=== PATIENT | male | born 1990 | race African-American/Black ===

== ENCOUNTER 2016-06-25 02:36 | Inpatient (IN) | payer SELFPAY ==
[2016-06-25] VITALS (13 sets, daily range): BP systolic 110–153; BP diastolic 55–94
[~2016-06-25] VITALS: Ht 185.4 cm; Wt 127.3 kg
[2016-06-25 03:05] LABS: BASO # 0.1 x10^3/uL (0.0-0.2); BASO % 1 % (0-3); EOS % 3 % (0-3); HEMATOCRIT 45.4 % (39.0-53.0); HEMOGLOBIN 15.5 g/dL (13.0-17.5); LYMPH # 2.8 x10^3/uL (1.0-4.8); LYMPH % 26 % (24-48); MEAN CORPUSCULAR HEMOGLOBIN 32 pg (25-35); MEAN CORPUSCULAR HGB CONC 34 g/dL (31-37); MEAN CORPUSCULAR VOLUME 92 fL (79-100); MONO % 8 % (0-9); NEUT % 63 % (31-73); PLATELET COUNT 241 x10^3/uL (140-400); RED BLOOD COUNT 4.91 x10^6/uL (4.30-5.70); RED CELL DISTRIBUTION WIDTH 13.5 % (11.5-14.5)
[2016-06-25 03:14] LABS: ANION GAP 10 (6-14); BLOOD UREA NITROGEN 9 mg/dL (8-26); CALCIUM 8.9 mg/dL (8.5-10.1); CARBON DIOXIDE 27 mmol/L (21-32); CHLORIDE 106 mmol/L (98-107); GFR 110.2; GLUCOSE 125 mg/dL (70-99); POTASSIUM 3.8 mmol/L (3.5-5.1); SODIUM 143 mmol/L (136-145)
[2016-06-25 03:20] LABS: ALBUMIN 3.6 g/dL (3.4-5.0); ALK PHOS 101 U/L (46-116); ALT (SGPT) 41 U/L (16-63); AST (SGOT) 29 U/L (15-37); DIRECT BILIRUBIN < 0.1 mg/dL (0.0-0.2); TOTAL BILIRUBIN 0.4 mg/dL (0.2-1.0); TOTAL PROTEIN 7.2 g/dL (6.4-8.2)
[2016-06-25] MEDS ORDERED: LIDO:MAALOX:DONNATAL 1:1:1 15 ML SINGLE DOSE SWSW ONE (04:00)
[2016-06-25] MEDS ORDERED: FAMOTIDINE 20 MG TABLET. PO ONE (04:00)
--- NOTE | 2016-06-25 04:32 | PHYS DOC ---
Past Medical History Past Medical History: No Pertinent History Past Surgical History: No Surgical History Alcohol Use: Occasionally Drug Use: Marijuana Adult General Chief Complaint Chief Complaint: ABDOMINAL PAIN HPI HPI 25-year-old male presenting to the emergency department with epigastric abdominal pain the pain is moderate nonradiating. It is associated with nausea. Denies vomiting but has had nausea. His pain is an 8 out of 10. It is a sharp pain. It is worse with food. Review of systems is negative for chest pain shortness of breath. Positive for nausea. Negative for vomiting. He denies fevers or chills. All other review of systems is negative unless otherwise noted in history of present illness. Review of Systems Review of Systems SEE ABOVE. Current Medications Current Medications Current Medications Medications (Trade) Dose Ordered Sig/Nesha Start Time Stop Time Status Last Admin Dose Admin Famotidine 20 mg 20 mg 1X ONCE 06/25/16 04:00 06/25/16 04:01 DC 06/25/16 04:00 20 MG Morphine Sulfate 2 mg 2 mg PRN Q2HR PRN 06/25/16 04:45 06/26/16 04:44 Multi-Ingredient Mouthwash/Gargle (Gi Cocktail Single Dose) 15 ml 1X ONCE 06/25/16 04:00 06/25/16 04:01 DC 06/25/16 04:00 15 ML Ondansetron HCl (Zofran) 4 mg PRN Q8HRS PRN 06/25/16 04:45 06/26/16 04:44 Piperacillin Sod/ Tazobactam Sod/ Sodium Chloride (Zosyn/Iv Sodium Chloride 0.9% 50ml) 50 ml @ 100 mls/hr 1X ONCE 06/25/16 05:00 06/25/16 05:29 Sodium Chloride (Iv Sodium Chloride 0.9% 1000ml Bag) 1,000 ml @ 125 mls/hr 1X ONCE 06/25/16 05:00 06/25/16 12:59 Allergies Allergies Allergies Coded Allergies Type Severity Reaction Last Updated Verified No Known Drug Allergies 03/21/14 No Physical Exam Physical Exam Constitutional: Well developed, well nourished, no acute distress, non-toxic appearance. HENT: Normocephalic, atraumatic, bilateral external ears normal, oropharynx moist, no oral exudates, nose normal. [] Eyes: PERRLA, EOMI, conjunctiva normal, no discharge. Neck: Normal range of motion, no tenderness, supple, no stridor. [] Cardiovascular:Heart rate regular rhythm, no murmur [] Lungs & Thorax: Bilateral breath sounds clear to auscultation Abdomen: Abdomen is soft and mildly tender in the right upper quadrant. Equivocal Ren[place] sign. Negative McBurney's point. No rebound tenderness. Mild guarding present. Skin: Warm, dry, no erythema, no rash. [] Back: No tenderness, no CVA tenderness. [] Extremities: No tenderness, no cyanosis, no clubbing, ROM intact, no edema. Neurologic: Alert and oriented X 3, normal motor function, normal sensory function, no focal deficits noted. [] Psychologic: Affect normal, judgement normal, mood normal. Current Patient Data Vital Signs Vital Signs Date Time Temp Pulse Resp B/P Pulse Ox O2 Delivery O2 Flow Rate FiO2 06/25/16 02:58 97.5 74 20 140/81 95 Room Air 97.5 Lab Values Laboratory Tests Test 06/25/16 02:52 White Blood Count 11.0x10^3/uL (4.0-11.0) Red Blood Count 4.91x10^6/uL (4.30-5.70) Hemoglobin 15.5g/dL (13.0-17.5) Hematocrit 45.4% (39.0-53.0) Mean Corpuscular Volume 92fL (79-100) Mean Corpuscular Hemoglobin 32pg (25-35) Mean Corpuscular Hemoglobin Concent 34g/dL (31-37) Red Cell Distribution Width 13.5% (11.5-14.5) Platelet Count 241x10^3/uL (140-400) Neutrophils (%) (Auto) 63% (31-73) Lymphocytes (%) (Auto) 26% (24-48) Monocytes (%) (Auto) 8% (0-9) Eosinophils (%) (Auto) 3% (0-3) Basophils (%) (Auto) 1% (0-3) Neutrophils # (Auto) 6.9x10^3uL (1.8-7.7) Lymphocytes # (Auto) 2.8x10^3/uL (1.0-4.8) Monocytes # (Auto) 0.9x10^3/uL (0.0-1.1) Eosinophils # (Auto) 0.3x10^3/uL (0.0-0.7) Basophils # (Auto) 0.1x10^3/uL (0.0-0.2) Sodium Level 143mmol/L (136-145) Potassium Level 3.8mmol/L (3.5-5.1) Chloride Level 106mmol/L (98-107) Carbon Dioxide Level 27mmol/L (21-32) Anion Gap 10 (6-14) Blood Urea Nitrogen 9mg/dL (8-26) Creatinine 1.0mg/dL (0.7-1.3) Estimated GFR (Cockcroft-Gault) 110.2 Glucose Level 125mg/dL (70-99) H Calcium Level 8.9mg/dL (8.5-10.1) Total Bilirubin 0.4mg/dL (0.2-1.0) Direct Bilirubin < 0.1mg/dL (0.0-0.2) Aspartate Amino Transferase (AST) 29U/L (15-37) Alanine Aminotransferase (ALT) 41U/L (16-63) Alkaline Phosphatase 101U/L (46-116) Total Protein 7.2g/dL (6.4-8.2) Albumin 3.6g/dL (3.4-5.0) Lipase 187U/L (73-393) Laboratory Tests 06/25/16 02:52 Laboratory Tests 06/25/16 02:52 EKG EKG [] Radiology/Procedures Radiology/Procedures [] Course & Med Decision Making Course & Med Decision Making Pertinent Labs and Imaging studies reviewed. (See chart for details) [] 25-year-old male presenting to the emergency department with epigastric abdominal pain. Vital signs unremarkable. Physical exam shows a mildly tender right upper quadrant. Ultrasound concerning for possible acute cholecystitis. Blood work obtained which showed normal white blood cell count. Chemistry panel otherwise unremarkable. Patient was given IV fluids along with IV antibiotics and admitted to our hospital for surgical consultation further evaluation workup and care. Dragon Disclaimer Dragon Disclaimer This electronic medical record was generated, in whole or in part, using a voice recognition dictation system. Departure Departure Impression: Primary Impression: Cholelithiases Additional Impressions: Common bile duct dilatation Right upper quadrant abdominal pain Disposition: ADMITTED INPATIENT Admitting Physician: Termulo, Megha Condition: STABLE Referrals: NO PCP (PCP) Problem Qualifiers LUIS FISH MD Jun 25, 2016 04:32
--- NOTE | 2016-06-25 04:32 | RAD ---
PROCEDURE Right upper quadrant ultrasound dated 06/25/2016. HISTORY Right upper quadrant pain. TECHNIQUE Routine sonographic imaging performed. COMPARISON None. FINDINGS Liver is of diffusely increased echogenicity, compatible with fatty infiltration. No focal hepatic mass. Intrahepatic biliary tree is normal in caliber. The common bile duct is mildly dilated measuring 10 millimeters diameter. Echogenic shadowing foci within the gallbladder lumen. There is also small amount of sludge. Gallbladder wall is diffusely thickened measuring up to 4 millimeters. The gallbladder is distended. There is pain elicited with transducer pressure over the level of gallbladder. Right kidney measures 11.1 centimeter in length. No hydronephrosis. Left kidney was not imaged. Pancreas is not well visualized due to overlying bowel gas. Limited visualized portions of aorta and IVC unremarkable. No significant ascites. IMPRESSION - Cholelithiasis and gallbladder sludge with diffuse gallbladder wall thickening. In combination with positive Reno sign, acute cholecystitis cannot be excluded. - Hepatic steatosis. - Dilated distal common bile duct could be reactive. A distal stone or stricture is not excluded. If indicated, MRCP may provide additional information. Electronically signed by: Juan Zhou (Jun 25, 2016 04:30:41)
[2016-06-25] MEDS ORDERED: ONDANSETRON PF 4 MG/2 ML VIAL. IV PRN ×4 (04:45→15:30)
[2016-06-25] MEDS ORDERED: IV NORMAL SALINE 1000ML BAG 1,000 ML IV ONE ×2 (05:00)
[2016-06-25] MEDS ORDERED: PIPERACILLIN/TAZOBACTAM 3.375 GM in IV NORMAL SALINE 50ML 50 ML IV ONE (05:00)
[2016-06-25] MEDS: MORPHINE SULFATE 2 MG/ML DISP.SYRIN. IV PRN ×4 (05:01→18:58)
--- NOTE | 2016-06-25 05:18 | ACF ---
Admission Forms Criteria GALLBLADDER OR BILE DUCT INFLAMMATION OR STONE Clinical Indications for Admission to Inpatient Care ( Place 'X' for any and all applicable criteria): Admission is indicated for patients with ANY ONE of the following(1)(2)(3)(4)(5) : [ ]I. Acute cholecystitis as indicated by ALL of the following: [ ]a) Right upper quadrant pain, mass, or tenderness [ ]b) Systemic signs of inflammation indicated by ANY ONE of the following: [ ]i) Fever [ ]ii) C-reactive protein level greater than 10 mg/L (95 nmol/L) [ ]iii) White blood cell count greater than 10,000/mm3 (10 x109/L) or less than 4000/mm3 (4 x109/L) [X]II. Inpatient admission required rather than observation care (Also use Gallbladder or Bile Duct Inflammation or Stone: Observation Care as appropriate) because of ANY ONE of the following: [ ]a) Common bile duct obstruction diagnosed [ ]b) Vomiting that is severe or persistent [X]c) Severe pain requiring acute inpatient management [ ]d) Signs of intestinal obstruction or peritonitis [A] [ ]e) Severe electrolyte abnormalities requiring inpatient care [ ]f) Absent bowel sounds with complete ileus(8) [ ]g) Hemodynamic instability [ ]h) High fever or infection requiring inpatient admission as indicated by ANY ONE of the following (9): [ ]1) Appropriate outpatient or observation care antimicrobial Treatment. unavailable, not effective, or not feasible [ ]2) Temperature greater than 104.9 degrees F (40.5 degrees C) (oral) [ ]3) Temperature greater than 103.1 degrees F (39.5 degrees C) (oral) or less than 96.8 degrees F (36 degrees C) (rectal) that does not respond to all emergency treatment measures [ ]4) Documented bacteremia [ ]i) IV fluid to replace significant ongoing losses (greater than 3 L/m2 per day) [ ]j) Percutaneous or open drainage (eg, abscess, biliary tract) procedures [ ]k) Immediate inpatient surgery [ ]l) Other condition, treatment or monitoring requiring inpatient admission [ ]III. Acute cholangitis as indicated by ALL of the following(9)(10): [ ]a) Systemic signs of inflammation indicated by ANY ONE of the following: [ ]i) Fever [ ]ii) C-reactive protein level greater than 10 mg/L (95 nmol /L) [ ]iii) White blood cell count greater than 10,000/mm3 (10 x109/L) or less than 4000/mm3 (4 x109/L) [ ]b) Evidence of common bile duct disease indicated by ANY ONE of the following: [ ]i) Total serum bilirubin level greater than or equal to 2 mg/dL (34 micromoles/L) [ ]ii) Liver function test (alkaline phosphatase (ALP), r- glutamyltransferase (GGT), aspartate aminotransferase (AST), or alanine aminotransferase (ALT)) greater than 1.5 times the upper limit of normal[B] [ ]iii) Hepatobiliary imaging showing biliary dilatation or evidence of etiology (eg, stricture, stone, previously placed stent) Extended stay beyond goal length of stay may be needed for (1)(2)): [ ]a) Bacteremia or Hemodynamic instability [ ]b) Cholecystectomy [ ]c) Other surgical procedure(24) [ ]d) Percutaneous or endoscopic ultrasound-guided cholecystostomy The original [facility] content created by [facility] has been revised. The portions of the content which have been revised are identified through the use of italic text or in bold, and [facility] has neither reviewed nor approved the modified material. All other unmodified content is copyright [facility]. Please see references footnoted in the original [facility] edition 2016 Admission Criteria Met?: Yes RILEY DELONG Jun 25, 2016 05:18
[2016-06-25] MEDS ORDERED: NICOTINE 14MG PATCH. TD PRN (11:00)
[2016-06-25] MEDS ORDERED: IV RINGERS,LACTATED 1000ML 1,000 ML IV SCH ×2 (11:18→15:24)
[2016-06-25] MEDS ORDERED: FENTANYL PF 100 MCG/2 ML VIAL. IV PRN (11:30)
[2016-06-25] MEDS ORDERED: HYDROMORPHONE 2 MG/ML VIAL. IV PRN (11:30)
[2016-06-25] MEDS ORDERED: LIDOCAINE 1% 1 ML SYRINGE. ID PRN (11:30)
[2016-06-25] MEDS ORDERED: PROCHLORPERAZINE 10 MG/2 ML VIAL. IV PRN (11:30)
[2016-06-25] MEDS ORDERED: HEPARIN 1,000 UNIT in IV NORMAL SALINE 1,000 ML for SURG PERIOP IRR ONE (12:30)
[2016-06-25] MEDS ORDERED: BUPIVACAINE-EPI 0.5%-1:200000 50 ML VIAL. ONE (12:59)
[2016-06-25] MEDS ORDERED: IOHEXOL 300 MG/ML 50 ML VIAL. ONE (12:59)
[2016-06-25] MEDS ORDERED: BISACODYL 10 MG SUPP.RECT ONE (12:59)
[2016-06-25] MEDS ORDERED: SURGICEL HEMOSTAT 4X8 EACH. ONE (12:59)
[2016-06-25] MEDS ORDERED: CEFAZOLIN 2GM PREMIX 50 ML IV ONE ×2 (13:17→15:00)
[2016-06-25] MEDS ORDERED: FENTANYL PF 100 MCG/2 ML VIAL. ONE ×3 (13:37→14:36)
[2016-06-25] MEDS ORDERED: MIDAZOLAM HCL 2 MG/2 ML VIAL. ONE ×2 (13:37→13:45)
[2016-06-25] MEDS ORDERED: PROPOFOL 20 ML IV ONE ×2 (13:37→14:55)
[2016-06-25] MEDS ORDERED: DEXAMETHASONE SOD PHOS 20 MG/5 ML VIAL. ONE (13:42)
[2016-06-25] MEDS ORDERED: ONDANSETRON PF 4 MG/2 ML VIAL. ONE (13:42)
[2016-06-25] MEDS ORDERED: ROCURONIUM 50 MG/5 ML VIAL. ONE (13:43)
[2016-06-25] MEDS ORDERED: NEOSTIGMINE METHYLSULFATE 5 MG/5 ML SYRINGE. ONE (13:43)
[2016-06-25] MEDS ORDERED: GLYCOPYRROLATE 1 MG/5 ML VIAL. ONE (13:43)
--- NOTE | 2016-06-25 13:48 | PDOC ---
SURGICAL PROGRESS NOTE Subjective 25 yo M with calculous cholecystitis TO OR for lap jack with grams R/B/A d/w pt and pt's family Thanks for consult! [id number] Vital Signs Vital Signs Date Time Temp Pulse Resp B/P Pulse Ox O2 Delivery O2 Flow Rate FiO2 06/25/16 13:38 97.6 77 16 161/95 97 Room Air 97.6 Labs Laboratory Tests Test 06/25/16 02:52 White Blood Count 11.0x10^3/uL (4.0-11.0) Red Blood Count 4.91x10^6/uL (4.30-5.70) Hemoglobin 15.5g/dL (13.0-17.5) Hematocrit 45.4% (39.0-53.0) Mean Corpuscular Volume 92fL (79-100) Mean Corpuscular Hemoglobin 32pg (25-35) Mean Corpuscular Hemoglobin Concent 34g/dL (31-37) Red Cell Distribution Width 13.5% (11.5-14.5) Platelet Count 241x10^3/uL (140-400) Neutrophils (%) (Auto) 63% (31-73) Lymphocytes (%) (Auto) 26% (24-48) Monocytes (%) (Auto) 8% (0-9) Eosinophils (%) (Auto) 3% (0-3) Basophils (%) (Auto) 1% (0-3) Neutrophils # (Auto) 6.9x10^3uL (1.8-7.7) Lymphocytes # (Auto) 2.8x10^3/uL (1.0-4.8) Monocytes # (Auto) 0.9x10^3/uL (0.0-1.1) Eosinophils # (Auto) 0.3x10^3/uL (0.0-0.7) Basophils # (Auto) 0.1x10^3/uL (0.0-0.2) Sodium Level 143mmol/L (136-145) Potassium Level 3.8mmol/L (3.5-5.1) Chloride Level 106mmol/L (98-107) Carbon Dioxide Level 27mmol/L (21-32) Anion Gap 10 (6-14) Blood Urea Nitrogen 9mg/dL (8-26) Creatinine 1.0mg/dL (0.7-1.3) Estimated GFR (Cockcroft-Gault) 110.2 Glucose Level 125mg/dL (70-99) Calcium Level 8.9mg/dL (8.5-10.1) Total Bilirubin 0.4mg/dL (0.2-1.0) Direct Bilirubin < 0.1mg/dL (0.0-0.2) Aspartate Amino Transf (AST/SGOT) 29U/L (15-37) Alanine Aminotransferase (ALT/SGPT) 41U/L (16-63) Alkaline Phosphatase 101U/L (46-116) Total Protein 7.2g/dL (6.4-8.2) Albumin 3.6g/dL (3.4-5.0) Lipase 187U/L (73-393) Laboratory Tests Test 06/25/16 02:52 White Blood Count 11.0x10^3/uL (4.0-11.0) Red Blood Count 4.91x10^6/uL (4.30-5.70) Hemoglobin 15.5g/dL (13.0-17.5) Hematocrit 45.4% (39.0-53.0) Mean Corpuscular Volume 92fL (79-100) Mean Corpuscular Hemoglobin 32pg (25-35) Mean Corpuscular Hemoglobin Concent 34g/dL (31-37) Red Cell Distribution Width 13.5% (11.5-14.5) Platelet Count 241x10^3/uL (140-400) Neutrophils (%) (Auto) 63% (31-73) Lymphocytes (%) (Auto) 26% (24-48) Monocytes (%) (Auto) 8% (0-9) Eosinophils (%) (Auto) 3% (0-3) Basophils (%) (Auto) 1% (0-3) Neutrophils # (Auto) 6.9x10^3uL (1.8-7.7) Lymphocytes # (Auto) 2.8x10^3/uL (1.0-4.8) Monocytes # (Auto) 0.9x10^3/uL (0.0-1.1) Eosinophils # (Auto) 0.3x10^3/uL (0.0-0.7) Basophils # (Auto) 0.1x10^3/uL (0.0-0.2) Sodium Level 143mmol/L (136-145) Potassium Level 3.8mmol/L (3.5-5.1) Chloride Level 106mmol/L (98-107) Carbon Dioxide Level 27mmol/L (21-32) Anion Gap 10 (6-14) Blood Urea Nitrogen 9mg/dL (8-26) Creatinine 1.0mg/dL (0.7-1.3) Estimated GFR (Cockcroft-Gault) 110.2 Glucose Level 125mg/dL (70-99) Calcium Level 8.9mg/dL (8.5-10.1) Total Bilirubin 0.4mg/dL (0.2-1.0) Direct Bilirubin < 0.1mg/dL (0.0-0.2) Aspartate Amino Transf (AST/SGOT) 29U/L (15-37) Alanine Aminotransferase (ALT/SGPT) 41U/L (16-63) Alkaline Phosphatase 101U/L (46-116) Total Protein 7.2g/dL (6.4-8.2) Albumin 3.6g/dL (3.4-5.0) Lipase 187U/L (73-393) Problem List Problems Medical Problems: (1) Cholecystitis Status: Acute (2) Common bile duct dilatation Status: Acute (3) Right upper quadrant abdominal pain Status: Acute (4) Self-harm Status: Acute (5) Testicular pain Status: Acute Problems: ERIN YOUSIF MD Jun 25, 2016 13:48
[2016-06-25] MEDS ORDERED: MIDAZOLAM HCL 2 MG/2 ML VIAL. IV ONE (14:00)
[2016-06-25] MEDS ORDERED: ACETAMINOPHEN 325 MG TABLET. PO PRN (14:30)
[2016-06-25] MEDS ORDERED: HYDROCODONE/APAP 5/325MG TABLET. PO PRN (14:30)
--- NOTE | 2016-06-25 14:32 | PDOC1 ---
History and Physical Date of Admission Date of Admission 06/25/16 Identification/Chief Complaint Chief Complaint abd pain Problems: Source Source: Chart review, Patient History of Present Illness History of Present Illness HPI HPI 25-year-old male presenting to the emergency department with abd pain for 2 days. He had similar pain 3 years ago. The pain is located at RUQ, radiating to back, wo N/V, diarrhea or constipation. Intermittent, no fever, mil chills. now pain free. no cough, chest pain. US showed Cholelithiasis and gallbladder sludge with diffuse gallbladder wall thickening. Past Medical History Past Medical History none Past Surgical History Past Surgical History: No pertinent history Family History Family History: No Significant Social History Smoke: <1 pack per day ALCOHOL: social Drugs: Marijuana Current Problem List Problem List Problems Medical Problems: (1) Cholecystitis Status: Acute (2) Common bile duct dilatation Status: Acute (3) Right upper quadrant abdominal pain Status: Acute (4) Self-harm Status: Acute (5) Testicular pain Status: Acute Current Medications Current Medications Current Medications Medications (Trade) Dose Ordered Sig/Nesha Start Time Stop Time Status Last Admin Dose Admin Bisacodyl 10 mg 10 mg STK-MED ONCE 06/25/16 12:59 06/25/16 13:00 DC Bupivacaine HCl/ Epinephrine Bitart (Marcaine-Epi 0.5%-1:[id number]) 50 ml STK-MED ONCE 06/25/16 12:59 06/25/16 13:00 DC Cefazolin Sodium/ Dextrose 50 ml @ As Directed STK-MED ONCE 06/25/16 13:17 06/25/16 13:18 DC Cellulose 1 each STK-MED ONCE 06/25/16 12:59 06/25/16 13:00 DC Dexamethasone Sodium Phosphate (Decadron) 20 mg STK-MED ONCE 06/25/16 13:42 06/25/16 13:43 DC Famotidine 20 mg 20 mg 1X ONCE 06/25/16 04:00 06/25/16 04:01 DC 06/25/16 04:00 20 MG Fentanyl Citrate (Fentanyl 2ml Vial) 100 mcg STK-MED ONCE 06/25/16 13:38 06/25/16 13:39 DC Glycopyrrolate (Robinul) 1 mg STK-MED ONCE 06/25/16 13:43 06/25/16 13:44 DC Heparin Sodium (Porcine)/Sodium Chloride (Iv Sodium Chloride 0.9% 1000ml Bag) 1,001 ml @ 1,001 mls/hr 1X PERIOP ONCE 06/25/16 12:30 06/25/16 13:29 DC Hydromorphone HCl (Dilaudid) 0.5 mg PRN Q10MIN PRN 06/25/16 11:30 06/26/16 11:29 Iohexol (Omnipaque 300 Mg/ml) 50 ml STK-MED ONCE 06/25/16 12:59 06/25/16 13:00 DC Lactated Ringer's (Iv Lactated Ringers) 1,000 ml @ 30 mls/hr Q24H 06/25/16 11:18 06/25/16 23:17 06/25/16 13:36 30 MLS/HR Lidocaine HCl 2 ml 1X PRN PRN 06/25/16 11:30 06/26/16 11:29 Midazolam HCl (Versed) 2 mg 1X ONCE 06/25/16 14:00 06/25/16 14:01 DC 06/25/16 13:47 2 MG Morphine Sulfate 1 mg 1 mg PRN Q10MIN PRN 06/25/16 11:30 06/26/16 11:29 Morphine Sulfate 2 mg 2 mg PRN Q2HR PRN 06/25/16 04:45 06/26/16 04:44 06/25/16 05:01 2 MG Multi-Ingredient Mouthwash/Gargle (Gi Cocktail Single Dose) 15 ml 1X ONCE 06/25/16 04:00 06/25/16 04:01 DC 06/25/16 04:00 15 ML Neostigmine Methylsulfate 5 mg STK-MED ONCE 06/25/16 13:43 06/25/16 13:44 DC Nicotine (Nicoderm Cq 14mg) 1 patch PRN DAILY PRN 06/25/16 11:00 Ondansetron HCl (Zofran) 4 mg STK-MED ONCE 06/25/16 13:42 06/25/16 13:43 DC Piperacillin Sod/ Tazobactam Sod/ Sodium Chloride (Zosyn/Iv Sodium Chloride 0.9% 50ml) 50 ml @ 100 mls/hr 1X ONCE 06/25/16 05:00 06/25/16 05:29 DC 06/25/16 04:58 100 MLS/HR Prochlorperazine Edisylate 5 mg 5 mg PACU PRN PRN 06/25/16 11:30 06/26/16 11:29 Propofol (Diprivan) 20 ml @ As Directed STK-MED ONCE 06/25/16 13:37 06/25/16 13:38 DC Rocuronium [place] (Zemuron) 50 mg STK-MED ONCE 06/25/16 13:43 06/25/16 13:44 DC Sodium Chloride (Iv Sodium Chloride 0.9% 1000ml Bag) 1,000 ml @ 125 mls/hr 1X ONCE 06/25/16 05:00 06/25/16 12:59 DC 06/25/16 05:01 125 MLS/HR Allergies Allergies Allergies Coded Allergies Type Severity Reaction Last Updated Verified No Known Drug Allergies 03/21/14 No ROS Review of System CONSTITUTIONAL: No fever or chills EYES: No recent changes SKIN: No rash or itching CARDIOVASCULAR: No chest pain, syncope, palpitations, or edema RESPIRATORY: No SOB or cough GASTROINTESTINAL: No nausea, vomiting or abdominal pain NEUROLOGICAL: No headaches or weakness ENDOCRINE: No cold or heat intolerance GENITOURINARY: No urgency or frequency of urination MUSCULOSKELETAL: No back pain or joint pain LYMPHATICS: No enlarged lymph nodes PSYCHIATRIC: No anxiety or depression Physical Exam Physical Exam GEN.: No apparent distress. Alert and oriented. HEENT: Head is normocephalic, atraumatic NECK: Supple. LUNGS: Clear to auscultation. HEART: RRR, S1, S2 present. Peripheral pulses intact ABDOMEN: Soft, decreased bowel sounds. RUQ mild tenderness EXTREMITIES: Without any cyanosis. NEUROLOGIC: Normal speech, normal tone PSYCHIATRIC: Normal affect, normal mood. SKIN: No ulcerations Vitals Vitals Vital Signs Date Time Temp Pulse Resp B/P Pulse Ox O2 Delivery O2 Flow Rate FiO2 06/25/16 13:38 97.6 77 16 161/95 97 Room Air 97.6 Labs Labs Laboratory Tests Test 06/25/16 02:52 White Blood Count 11.0x10^3/uL (4.0-11.0) Red Blood Count 4.91x10^6/uL (4.30-5.70) Hemoglobin 15.5g/dL (13.0-17.5) Hematocrit 45.4% (39.0-53.0) Mean Corpuscular Volume 92fL (79-100) Mean Corpuscular Hemoglobin 32pg (25-35) Mean Corpuscular Hemoglobin Concent 34g/dL (31-37) Red Cell Distribution Width 13.5% (11.5-14.5) Platelet Count 241x10^3/uL (140-400) Neutrophils (%) (Auto) 63% (31-73) Lymphocytes (%) (Auto) 26% (24-48) Monocytes (%) (Auto) 8% (0-9) Eosinophils (%) (Auto) 3% (0-3) Basophils (%) (Auto) 1% (0-3) Neutrophils # (Auto) 6.9x10^3uL (1.8-7.7) Lymphocytes # (Auto) 2.8x10^3/uL (1.0-4.8) Monocytes # (Auto) 0.9x10^3/uL (0.0-1.1) Eosinophils # (Auto) 0.3x10^3/uL (0.0-0.7) Basophils # (Auto) 0.1x10^3/uL (0.0-0.2) Sodium Level 143mmol/L (136-145) Potassium Level 3.8mmol/L (3.5-5.1) Chloride Level 106mmol/L (98-107) Carbon Dioxide Level 27mmol/L (21-32) Anion Gap 10 (6-14) Blood Urea Nitrogen 9mg/dL (8-26) Creatinine 1.0mg/dL (0.7-1.3) Estimated GFR (Cockcroft-Gault) 110.2 Glucose Level 125mg/dL (70-99) Calcium Level 8.9mg/dL (8.5-10.1) Total Bilirubin 0.4mg/dL (0.2-1.0) Direct Bilirubin < 0.1mg/dL (0.0-0.2) Aspartate Amino Transf (AST/SGOT) 29U/L (15-37) Alanine Aminotransferase (ALT/SGPT) 41U/L (16-63) Alkaline Phosphatase 101U/L (46-116) Total Protein 7.2g/dL (6.4-8.2) Albumin 3.6g/dL (3.4-5.0) Lipase 187U/L (73-393) Laboratory Tests Test 06/25/16 02:52 White Blood Count 11.0x10^3/uL (4.0-11.0) Red Blood Count 4.91x10^6/uL (4.30-5.70) Hemoglobin 15.5g/dL (13.0-17.5) Hematocrit 45.4% (39.0-53.0) Mean Corpuscular Volume 92fL (79-100) Mean Corpuscular Hemoglobin 32pg (25-35) Mean Corpuscular Hemoglobin Concent 34g/dL (31-37) Red Cell Distribution Width 13.5% (11.5-14.5) Platelet Count 241x10^3/uL (140-400) Neutrophils (%) (Auto) 63% (31-73) Lymphocytes (%) (Auto) 26% (24-48) Monocytes (%) (Auto) 8% (0-9) Eosinophils (%) (Auto) 3% (0-3) Basophils (%) (Auto) 1% (0-3) Neutrophils # (Auto) 6.9x10^3uL (1.8-7.7) Lymphocytes # (Auto) 2.8x10^3/uL (1.0-4.8) Monocytes # (Auto) 0.9x10^3/uL (0.0-1.1) Eosinophils # (Auto) 0.3x10^3/uL (0.0-0.7) Basophils # (Auto) 0.1x10^3/uL (0.0-0.2) Sodium Level 143mmol/L (136-145) Potassium Level 3.8mmol/L (3.5-5.1) Chloride Level 106mmol/L (98-107) Carbon Dioxide Level 27mmol/L (21-32) Anion Gap 10 (6-14) Blood Urea Nitrogen 9mg/dL (8-26) Creatinine 1.0mg/dL (0.7-1.3) Estimated GFR (Cockcroft-Gault) 110.2 Glucose Level 125mg/dL (70-99) Calcium Level 8.9mg/dL (8.5-10.1) Total Bilirubin 0.4mg/dL (0.2-1.0) Direct Bilirubin < 0.1mg/dL (0.0-0.2) Aspartate Amino Transf (AST/SGOT) 29U/L (15-37) Alanine Aminotransferase (ALT/SGPT) 41U/L (16-63) Alkaline Phosphatase 101U/L (46-116) Total Protein 7.2g/dL (6.4-8.2) Albumin 3.6g/dL (3.4-5.0) Lipase 187U/L (73-393) VTE Prophylaxis Ordered VTE Prophylaxis Devices: Yes VTE Pharmacological Prophylaxi: Yes Assessment/Plan Assessment/Plan 1. RUQ pain with acute cholecystitis 2. Cholelithiasis and gallbladder sludge 3. tobaccoism 4. obesity plan: 1. fu with sx. lap jack today 2. pain control labs tmr nicotine patch RITU Chandler MD Jun 25, 2016 14:32
[2016-06-25] MEDS ORDERED: DESFLURANE 61 TO 120 MINUTES IH ONE (14:47)
[2016-06-25] MEDS ORDERED: ROCURONIUM 100 MG/10 ML VIAL. ONE (14:54)
--- NOTE | 2016-06-25 15:04 | RAD ---
Intraoperative cholangiogram 06/25/2016 Conclusion: Laparoscopic cholecystectomy. Fluoroscopic assistance was provided during an intraoperative cholangiogram. The total fluoroscopic time is listed as 11 seconds. A single digital spot radiograph of the right upper quadrant of the abdomen was obtained. This radiograph demonstrates contrast opacifying the cystic duct remnant, the common hepatic duct, the left and right hepatic duct and their branches and the common bile duct. These ducts are normal in caliber. No filling defect is seen. Free spillage of contrast into the duodenum is noted. Impression: Negative study.
[2016-06-25] MEDS ORDERED: KETOROLAC 30 MG/ML SYRINGE FOR OR. INJ ONE (15:05)
[2016-06-25] MEDS ORDERED: 0.9 % SODIUM CHLORIDE 10 ML DISP.SYRIN. IV PRN (15:30)
[2016-06-25] MEDS ORDERED: DEXTROSE 50% 25 GM / 50ML DISP.SYRIN. IV PRN (15:30)
--- NOTE | 2016-06-25 15:31 | PDOC ---
BRIEF OPERATIVE NOTE Pre-Op Diagnosis Calculous cholecystitis Post-Op Diagnosis same Procedure Performed lap jack with grams Surgeon Shahrzad Anesthesia Type: General, Local Blood Loss 50 IV Fluid 1000 Specimens Obtained GB Findings wnl ioc Complications none Additional Remarks [id number] ERIN YOUSIF MD Jun 25, 2016 15:31
[2016-06-25] MEDS: FENTANYL PF 100 MCG/2 ML VIAL. IV PRN ×4 (15:53→16:33)
[2016-06-25] MEDS ORDERED: no home meds (17:59)
[2016-06-25] MEDS: HYDROCODONE/APAP 5/325MG TABLET. PO PRN (21:14)
[2016-06-25] MEDS: DOCUSATE SODIUM 100 MG CAPSULE PO SCH (21:14)
[2016-06-25] MEDS: IV NORMAL SALINE 1000ML BAG 1,000 ML IV SCH (23:52)
[2016-06-26 02:42] VITALS: BP 131/78
--- NOTE | 2016-06-26 02:51 | CONS ---
DATE OF CONSULTATION: 06/25/2016 REFERRING PHYSICIANS: Dr. Megha Kohler, Dr. Luis Chiu. Thank you for the consult. CHIEF COMPLAINT: Epigastric right upper quadrant abdominal pain. DIAGNOSIS: Calculous cholecystitis. PLANNED PROCEDURE: Laparoscopic cholecystectomy with intraoperative cholangiogram. HISTORY OF PRESENT ILLNESS: This is a 25-year-old male who presents with complaints of epigastric right upper quadrant abdominal pain associated with nausea, no emesis. It is worse with food and reports previous episodes like this in 2014 and does report feeling better since he has been admitted to the hospital. He was seen in his hospital room. ALLERGIES: He has no known drug allergies. MEDICATIONS: None. PAST MEDICAL HISTORY: None. PAST SURGICAL HISTORY: None. SOCIAL HISTORY: Positive for a few cigarettes per day and use of marijuana. He is encouraged on need for smoking cessation. No significant alcohol use. FAMILY HISTORY: Noncontributory. REVIEW OF SYSTEMS: All systems reviewed and negative except for HPI. PHYSICAL EXAMINATION: GENERAL: Well-developed, somewhat obese male in no obvious distress. VITAL SIGNS: He is afebrile. Vital signs within normal limits, although he is noted to be somewhat hypertensive. HEENT: Normocephalic, anicteric sclerae. Oropharynx clear. NECK: Supple. CHEST: Bilateral chest excursion. ABDOMEN: Soft, nondistended. There is tenderness to palpation in the epigastrium and right upper quadrant area. EXTREMITIES: No clubbing, cyanosis or edema. LABORATORY DATA: White blood cell count is 11. Other labs are essentially unremarkable, although glucose is 125. DIAGNOSTIC DATA: An ultrasound demonstrates cholelithiasis with gallbladder sludge with diffuse gallbladder wall thickening, hepatic steatosis, and common bile duct is mildly dilated at 10 mm. IMPRESSION AND RECOMMENDATIONS: A 25-year-old male with calculous cholecystitis. We will plan on laparoscopic cholecystectomy with intraoperative cholangiogram. The patient and the patient's family are informed of the risks, benefits, alternatives to procedure, risks including but not limited to bleeding, infection, damage to surrounding structures, risk of anesthesia, and risk of an open procedure. The patient and patient's family appeared to understand and their insightful questions were answered and they agreed to proceed. Thank you for allowing me to participate in the care of this very pleasant patient. Sincerely, ERIN YOUSIF MD DR: LYNN/ariel JOB#: [id number] / [id number] LUIS Moreno MD, CHERRIE MD
[2016-06-26] MEDS: MORPHINE SULFATE 2 MG/ML DISP.SYRIN. IV PRN (03:45)
--- NOTE | 2016-06-26 04:54 | OP ---
DATE OF SURGERY: REFERRING PHYSICIANS: Dr. Megha Kohler Dr. ____. Thank you for the consult. PREOPERATIVE DIAGNOSES: Calculous cholecystitis. POSTOPERATIVE DIAGNOSIS: Calculous cholecystitis. PROCEDURES: Laparoscopic cholecystectomy with intraoperative cholangiogram. SURGEON: Álvaro Yousif MD ESTIMATED BLOOD LOSS: 50 mL. FLUIDS: 1000 mL. COMPLICATIONS: None. FINDINGS: Extensive calculus cholecystitis, normal appearing intraoperative cholangiogram. INDICATIONS: A 25-year-old male presents with complaints of epigastric right upper quadrant abdominal pain. Imaging is concerning for calculous cholecystitis. Subsequently, it was felt patient best be served by laparoscopic versus open cholecystectomy with intraoperative cholangiogram. The patient and patient's family were informed of the risks, benefits, alternatives to the procedure, risks including but not limited to bleeding, infection, damage to surrounding structures, risk of anesthesia, risk of an open procedure. The patient and patient's family appeared to understand and their insightful questions were answered and they agreed to proceed. DESCRIPTION OF PROCEDURE: After obtaining informed consent, the patient was taken to the operating room, induced under general endotracheal anesthetic. The patient was prepped and draped in usual fashion in the anterior abdominal wall. A 0.5% Marcaine with epinephrine was injected in the supraumbilical area and incision was made using 15 blade scalpel. 5 mm nonbladed trocar was introduced in the abdominal cavity under direct vision of laparoscope. Pneumoperitoneum was established. Additional 12 port was placed in the epigastrium, another 5 mm port was placed in the right upper quadrant, all under direct vision of the laparoscope. The abdominal cavity was explored. The patient is somewhat obese, making the procedure somewhat difficult. The liver was normal in appearance. Gallbladder with extensive chronic inflammatory changes, visualized portion of viscera normal in appearance. There was no evidence of trocar injury. Subsequently, the gallbladder was grasped. The triangle of Calot was exposed. The peritoneum overlying the cystic duct was taken down using blunt dissection. After careful dissection, the adhesions to the gallbladder, the critical view was obtained. This demonstrated cystic duct and cystic artery as the only structures going to the gallbladder. Clips were placed on the cystic artery and clip was placed on the cystic duct infundibulum junction. Incision was made in the cystic duct using EndoShears. Cholangiogram catheter was introduced and cholangiogram was obtained. Cholangiogram demonstrated normal appearing hepatic ducts, normal appearing common bile free extravasation into the duodenum. Cholangiogram catheter was removed. Multiple clips were placed on the cystic duct stump including Hem-o-nadine and the cystic duct was divided. Cystic artery was divided between the previously placed clips. Gallbladder was taken off the gallbladder fossa sharply using electrocautery. Gallbladder was placed in EndoCatch bag and brought out through the epigastric port and passed off the field and sent to pathology for evaluation. There was some concern of a very small bile duct on the lateral edge of the gallbladder fossa. This was secured with a clamp. This was well away from the dev hepatis. Hemostasis was obtained in the gallbladder fossa using electrocautery and a piece of Surgicel was placed on this. The gallbladder was placed in EndoCatch bag and brought out the epigastric port and passed off field and sent to pathology for evaluation. This did require extensive dilatation in the epigastric port secondary to multiple gallstones. The abdominal cavity was copiously irrigated with normal saline solution. There was no evidence of bleeding or bile leak at the time of closure. All ports removed under direct vision of laparoscope. There was no evidence of port site bleeding. Fascial defect in the epigastrium was reapproximated using 2 interrupted 0 Vicryl stitches using a PMI device. All skin incisions were approximated using multiple interrupted 4-0 Monocryl in subcuticular fashion. Sterile dressing was placed over all wounds. The patient tolerated procedure well and was discharged to recovery room in stable condition. All counts correct. There were no immediate complications. ÁLVARO YOUSIF MD DR: LYNN/ariel JOB#: [id number] / [id number] LUIS Moreno MD, CHERRIE MD
[2016-06-26 05:22] LABS: BASO % 0 % (0-3); EOS % 0 % (0-3); HEMATOCRIT 48.1 % (39.0-53.0); HEMOGLOBIN 16.1 g/dL (13.0-17.5); LYMPH # 1.1 x10^3/uL (1.0-4.8); LYMPH % 7 % (24-48); MEAN CORPUSCULAR HEMOGLOBIN 31 pg (25-35); MEAN CORPUSCULAR HGB CONC 34 g/dL (31-37); MEAN CORPUSCULAR VOLUME 91 fL (79-100); MONO % 6 % (0-9); NEUT % 87 % (31-73); PLATELET COUNT 268 x10^3/uL (140-400); RED BLOOD COUNT 5.27 x10^6/uL (4.30-5.70); RED CELL DISTRIBUTION WIDTH 13.8 % (11.5-14.5); WHITE BLOOD COUNT 15.9 x10^3/uL (4.0-11.0)
[2016-06-26] MEDS: IV NORMAL SALINE 1000ML BAG 1,000 ML IV SCH (05:35)
[2016-06-26 05:47] LABS: CALCIUM 9.3 mg/dL (8.5-10.1); CREATININE 1.1 mg/dL (0.7-1.3); GFR 98.7; POTASSIUM 4.1 mmol/L (3.5-5.1)
[2016-06-26 06:06] LABS: ALBUMIN 3.5 g/dL (3.4-5.0); DIRECT BILIRUBIN 0.2 mg/dL (0.0-0.2); TOTAL BILIRUBIN 0.8 mg/dL (0.2-1.0); TOTAL PROTEIN 7.2 g/dL (6.4-8.2)
[2016-06-26 07:52] VITALS: BP 135/74
[2016-06-26 08:23] LABS: PLT ESTIMATE ADEQUATE (ADEQUATE)
[2016-06-26] MEDS: HYDROCODONE/APAP 5/325MG TABLET. PO PRN ×3 (08:41→14:44)
[2016-06-26] MEDS: DOCUSATE SODIUM 100 MG CAPSULE PO SCH (08:42)
[2016-06-26 11:09] VITALS: BP 129/72
--- NOTE | 2016-06-26 11:26 | PDOC ---
SURGICAL PROGRESS NOTE Subjective Pt with c/o incisional pain, but feels better, monet PO Vital Signs Vital Signs Date Time Temp Pulse Resp B/P Pulse Ox O2 Delivery O2 Flow Rate FiO2 06/26/16 11:09 98.4 66 20 129/72 98 Room Air 98.4 06/25/16 20:00 2.0 I&O Intake and Output 06/26/16 07:00 Intake Total 1540 ml Output Total 2165 ml Balance -625 ml Intake Oral 390 ml IV Total 1150 ml Output Urine Total 2115 ml Estimated Blood Loss 50 ml # Voids 2 General: Alert, Oriented X3, Cooperative, No acute distress Abdomen: Soft, No tenderness, Other (dressing c/d/i) Labs Laboratory Tests Test 06/25/16 02:52 06/26/16 04:35 White Blood Count 11.0x10^3/uL (4.0-11.0) 15.9x10^3/uL (4.0-11.0) Red Blood Count 4.91x10^6/uL (4.30-5.70) 5.27x10^6/uL (4.30-5.70) Hemoglobin 15.5g/dL (13.0-17.5) 16.1g/dL (13.0-17.5) Hematocrit 45.4% (39.0-53.0) 48.1% (39.0-53.0) Mean Corpuscular Volume 92fL (79-100) 91fL (79-100) Mean Corpuscular Hemoglobin 32pg (25-35) 31pg (25-35) Mean Corpuscular Hemoglobin Concent 34g/dL (31-37) 34g/dL (31-37) Red Cell Distribution Width 13.5% (11.5-14.5) 13.8% (11.5-14.5) Platelet Count 241x10^3/uL (140-400) 268x10^3/uL (140-400) Neutrophils (%) (Auto) 63% (31-73) 87% (31-73) Lymphocytes (%) (Auto) 26% (24-48) 7% (24-48) Monocytes (%) (Auto) 8% (0-9) 6% (0-9) Eosinophils (%) (Auto) 3% (0-3) 0% (0-3) Basophils (%) (Auto) 1% (0-3) 0% (0-3) Neutrophils # (Auto) 6.9x10^3uL (1.8-7.7) 13.8x10^3uL (1.8-7.7) Lymphocytes # (Auto) 2.8x10^3/uL (1.0-4.8) 1.1x10^3/uL (1.0-4.8) Monocytes # (Auto) 0.9x10^3/uL (0.0-1.1) 1.0x10^3/uL (0.0-1.1) Eosinophils # (Auto) 0.3x10^3/uL (0.0-0.7) 0.0x10^3/uL (0.0-0.7) Basophils # (Auto) 0.1x10^3/uL (0.0-0.2) 0.0x10^3/uL (0.0-0.2) Sodium Level 143mmol/L (136-145) 141mmol/L (136-145) Potassium Level 3.8mmol/L (3.5-5.1) 4.1mmol/L (3.5-5.1) Chloride Level 106mmol/L (98-107) 104mmol/L (98-107) Carbon Dioxide Level 27mmol/L (21-32) 27mmol/L (21-32) Anion Gap 10 (6-14) 10 (6-14) Blood Urea Nitrogen 9mg/dL (8-26) 8mg/dL (8-26) Creatinine 1.0mg/dL (0.7-1.3) 1.1mg/dL (0.7-1.3) Estimated GFR (Cockcroft-Gault) 110.2 98.7 Glucose Level 125mg/dL (70-99) 121mg/dL (70-99) Calcium Level 8.9mg/dL (8.5-10.1) 9.3mg/dL (8.5-10.1) Total Bilirubin 0.4mg/dL (0.2-1.0) 0.8mg/dL (0.2-1.0) Direct Bilirubin < 0.1mg/dL (0.0-0.2) 0.2mg/dL (0.0-0.2) Aspartate Amino Transf (AST/SGOT) 29U/L (15-37) 64U/L (15-37) Alanine Aminotransferase (ALT/SGPT) 41U/L (16-63) 102U/L (16-63) Alkaline Phosphatase 101U/L (46-116) 97U/L (46-116) Total Protein 7.2g/dL (6.4-8.2) 7.2g/dL (6.4-8.2) Albumin 3.6g/dL (3.4-5.0) 3.5g/dL (3.4-5.0) Lipase 187U/L (73-393) Segmented Neutrophils % 90% (35-66) Lymphocytes % 5% (24-48) Monocytes % 5% (0-10) Platelet Estimate Adequate (ADEQUATE) Large Platelets Occ Laboratory Tests Test 06/26/16 04:35 White Blood Count 15.9x10^3/uL (4.0-11.0) Red Blood Count 5.27x10^6/uL (4.30-5.70) Hemoglobin 16.1g/dL (13.0-17.5) Hematocrit 48.1% (39.0-53.0) Mean Corpuscular Volume 91fL (79-100) Mean Corpuscular Hemoglobin 31pg (25-35) Mean Corpuscular Hemoglobin Concent 34g/dL (31-37) Red Cell Distribution Width 13.8% (11.5-14.5) Platelet Count 268x10^3/uL (140-400) Neutrophils (%) (Auto) 87% (31-73) Lymphocytes (%) (Auto) 7% (24-48) Monocytes (%) (Auto) 6% (0-9) Eosinophils (%) (Auto) 0% (0-3) Basophils (%) (Auto) 0% (0-3) Neutrophils # (Auto) 13.8x10^3uL (1.8-7.7) Lymphocytes # (Auto) 1.1x10^3/uL (1.0-4.8) Monocytes # (Auto) 1.0x10^3/uL (0.0-1.1) Eosinophils # (Auto) 0.0x10^3/uL (0.0-0.7) Basophils # (Auto) 0.0x10^3/uL (0.0-0.2) Segmented Neutrophils % 90% (35-66) Lymphocytes % 5% (24-48) Monocytes % 5% (0-10) Platelet Estimate Adequate (ADEQUATE) Large Platelets Occ Sodium Level 141mmol/L (136-145) Potassium Level 4.1mmol/L (3.5-5.1) Chloride Level 104mmol/L (98-107) Carbon Dioxide Level 27mmol/L (21-32) Anion Gap 10 (6-14) Blood Urea Nitrogen 8mg/dL (8-26) Creatinine 1.1mg/dL (0.7-1.3) Estimated GFR (Cockcroft-Gault) 98.7 Glucose Level 121mg/dL (70-99) Calcium Level 9.3mg/dL (8.5-10.1) Total Bilirubin 0.8mg/dL (0.2-1.0) Direct Bilirubin 0.2mg/dL (0.0-0.2) Aspartate Amino Transf (AST/SGOT) 64U/L (15-37) Alanine Aminotransferase (ALT/SGPT) 102U/L (16-63) Alkaline Phosphatase 97U/L (46-116) Total Protein 7.2g/dL (6.4-8.2) Albumin 3.5g/dL (3.4-5.0) Problem List Problems Medical Problems: (1) Calculous cholecystitis Status: Acute (2) Cholecystitis Status: Acute (3) Common bile duct dilatation Status: Acute (4) Right upper quadrant abdominal pain Status: Acute (5) Self-harm Status: Acute (6) Testicular pain Status: Acute Assessment/Plan s/p lap jack with grams OK to d/c f/u in two weeks Problems: ERIN YOUSIF MD Jun 26, 2016 11:26
[2016-06-26] MEDS ORDERED: HYDR-2666 PO (13:14)
--- NOTE | 2016-06-26 13:15 | PDOC3 ---
Discharge Summary [facility] Date of Admission: Jun 25, 2016 Discharge Date: Jun 26, 2016 Admitting Diagnosis 1. RUQ pain with acute cholecystitis s/p lap jack 2. Cholelithiasis and gallbladder sludge 3. tobaccoism 4. obesity Problems: Final Diagnosis Problems Medical Problems: (1) Calculous cholecystitis Status: Acute (2) Cholecystitis Status: Acute (3) Common bile duct dilatation Status: Acute (4) Right upper quadrant abdominal pain Status: Acute (5) Self-harm Status: Acute (6) Testicular pain Status: Acute CONSULTS sx Procedures lap jack Brief Hospital Course 25-year-old male presenting to the emergency department with abd pain for 2 days. He had similar pain 3 years ago. The pain is located at RUQ, radiating to back, wo N/V, diarrhea or constipation. Intermittent, no fever, mil chills. now pain free. no cough, chest pain. US showed Cholelithiasis and gallbladder sludge with diffuse gallbladder wall thickening. pt got lap cholecystectomy for acute cholecystitis. pt tolerate food well, no flatus or BM, wbc higher to 15, likely reactive. sx ok to dc pt dc with lortab 20pills. dc time 35min GEN.: No apparent distress. Alert and oriented. HEENT: Head is normocephalic, atraumatic NECK: Supple. LUNGS: Clear to auscultation. HEART: RRR, S1, S2 present. Peripheral pulses intact ABDOMEN: Soft, decreased bowel sounds. RUQ mild tenderness. 4sx wound mild woozing EXTREMITIES: Without any cyanosis. NEUROLOGIC: Normal speech, normal tone PSYCHIATRIC: Normal affect, normal mood. SKIN: No ulcerations Patient History: Family history: Cardiovascular disease (situation) 33 FATHER Family history: Hypertension (situation) 33 FATHER No Family History of: Cancer confirmed (situation) Family history: Allergy Family history: Alzheimer's disease (situation) Family history: Angina (situation) Family history: Asthma Family history: Autoimmune disease (situation) Family history: Blood disorder (situation) Family history: Breast disease (situation) Family history: Cardiomyopathy (situation) Family history: Crohn's disease (situation) Family history: Depression (situation) Family history: Diabetes mellitus (situation) Family history: Epilepsy (situation) Family history: Gallbladder disease (situation) Family history: Gastrointestinal disease (situation) Family history: Hemophilia (situation) Family history: Obesity (situation) Family history: Schizophrenia (situation) Family history: Sickle cell trait (situation) Family history: neoplasm - trachea/bronchus/lung (situation) Family history: neoplasm - urinary organ (situation) Family history: neoplasm of skin (situation) Malignant hyperthermia Sleep apnea Problems: Disposition home CONDITION AT DISCHARGE: Improved Diet regular Scheduled PRN Hydrocodone Bit/Acetaminophen (Hydrocodone-Apap 5-325 ) 1 TAB PO PRN Q4HRS PRN PRN MILD PAIN Discontinued Medications ([no home meds]) (Reported) Info (No Known Medications Prior To Admisstion) 1 EACH (Reported) Follow Up sx in 2 weeks RITU LOCKWOOD MD Jun 26, 2016 13:15
--- NOTE | 2016-06-27 13:33 | PATHOLOGY ---
PATHOLOGY REPORT * * * * * * * * FINAL DIAGNOSIS: Gallbladder, laparoscopic cholecystectomy: - Cholelithiasis. - Chronic cholecystitis with eosinophils. COMMENT: Sections of the gallbladder show chronic inflammation with focally prominent numbers of admixed eosinophils. There is no evidence of malignancy. (JPM:; d/t: 06/27/16) REPORT ELECTRONICALLY SIGNED BY: Jono Lopez M.D. DATE/TIME: 06/27/2016 13:33 * * * * * * * * GROSS PATHOLOGY: Received in formalin labeled "Yeny Solis, gallbladder and contents," is a 13.8 x 3.7 x 3.0 cm, intact gallbladder with pink-mart serosal surfaces. Opening the gallbladder reveals a velvety, light rariaga mucosa and an average wall thickness of 0.1 cm. Calculi are present displaying a yellow-green and multinodular appearance, and no masses are noted grossly. Group Product Manager sections from the body and fundus are submitted along with the proximal margin in cassette A1. (CAA; 06/26/2016) INITIAL CPT CODE(S): A; 67610 Professional services performed [place] [employer] [place] [address] Technical services performed by [employer] at [address] [place] [address] [address] [address]. SPECIMEN(S) RECEIVED: A.Gallbladder and contents CLINICAL HISTORY: Cholecystitis PATIENT: YENY SOLIS /AGE: 711/16/1990 (Age: 25) PATIENT #: [id number] ALT CASE #: SPECIMEN COLLECTION DATE: 06/25/2016 SPECIMEN RECEIVED DATE: 06/26/2016 [facility] - [address] [place] [address] - PHONE: [phone] * * * END OF REPORT * * *
== END 2016-06-26 15:23 | disposition home or self-care (01) | DRG 418 ==
LOC: ER 02:36 → 5 NORTH 04:39
PROVIDERS: ADMIT Internal Medicine; ATTEND Internal Medicine
PROC: BF131ZZ Fluoroscopy of Gallbladder and Bile Ducts using Low Osmolar Contrast (ICD-10-PCS; 2016-06-25)
PROC: 0FT44ZZ Resection of Gallbladder, Percutaneous Endoscopic Approach (ICD-10-PCS; principal; 2016-06-25 15:00)
DX: K80.00 Calculus of gallbladder with acute cholecystitis without obstruction (principal); R65.10 Systemic inflammatory response syndrome (SIRS) of non-infectious origin without acute organ dysfunction; E66.9 Obesity, unspecified; F12.90 Cannabis use, unspecified, uncomplicated; F17.200 Nicotine dependence, unspecified, uncomplicated; K82.8 Other specified diseases of gallbladder; N50.819 Testicular pain, unspecified; Z81.8 Family history of other mental and behavioral disorders; Z82.0 Family history of epilepsy and other diseases of the nervous system; Z82.49 Family history of ischemic heart disease and other diseases of the circulatory system; Z68.37 Body mass index [BMI] 37.0-37.9, adult; Z82.5 Family history of asthma and other chronic lower respiratory diseases; Z83.3 Family history of diabetes mellitus
CPT/HCPCS: 36415; 74300; 76705; 80048; 80076; 83690; 85007; 85027; 88304; 96365; 96375; C1782; J0690; J1100; J1885; J2250; J2270; J2405; J2543; J2704; J2710; J3010; J3490; J7030; J7120; Q9967; 99285-25

== ENCOUNTER 2016-07-09 11:56 | Emergency (ER) | payer SELFPAY ==
[~2016-07-09] VITALS: Ht 185.4 cm; Wt 121.1 kg
[~2016-07-09 11:56] MED LIST: HYDR-2666 PO; no home meds
[2016-07-09 12:31] VITALS: BP 126/79
--- NOTE | 2016-07-09 13:17 | PHYS DOC ---
Past Medical History Past Medical History: No Pertinent History Past Surgical History: Cholecystectomy Alcohol Use: Occasionally Drug Use: Marijuana Adult General Chief Complaint Chief Complaint: SEXUALLY TRANSMITTED DISEASE HPI HPI Patient is a 25 year old male who presents emergent today stating that his ex fianc accused him of giving her herpes genitalis. Patient himself says that he has no history of herpes. He denies any lesions to his penis. Denies any discharge or dysuria. Review of Systems Review of Systems Constitutional: Denies fever or chills [] Eyes: Denies change in visual acuity, redness, or eye pain [] HENT: Denies nasal congestion or sore throat [] Respiratory: Denies cough or shortness of breath [] Cardiovascular: No additional information not addressed in HPI [] GI: Denies abdominal pain, nausea, vomiting, bloody stools or diarrhea [] : Denies dysuria or hematuria [] Musculoskeletal: Denies back pain or joint pain [] Integument: Denies rash or skin lesions [] Neurologic: Denies headache, focal weakness or sensory changes [] Endocrine: Denies polyuria or polydipsia [] Allergies Allergies Allergies Coded Allergies Type Severity Reaction Last Updated Verified No Known Drug Allergies 06/25/16 No Physical Exam Physical Exam Constitutional: Well developed, well nourished, no acute distress, non-toxic appearance. [] HENT: Normocephalic, atraumatic, bilateral external ears normal, oropharynx moist, no oral exudates, nose normal. [] Eyes: PERRLA, EOMI, conjunctiva normal, no discharge. [] Neck: Normal range of motion, no tenderness, supple, no stridor. [] Cardiovascular:Heart rate regular rhythm, no murmur [] Lungs & Thorax: Bilateral breath sounds clear to auscultation [] Abdomen: Bowel sounds normal, soft, no tenderness, no masses, no pulsatile masses. External genitalia is normal in appearance. Patient has no complaints of tenderness with palpation. Skin: Warm, dry, no erythema, no rash. [] Back: No tenderness, no CVA tenderness. [] Extremities: No tenderness, no cyanosis, no clubbing, ROM intact, no edema. [] Neurologic: Alert and oriented X 3, normal motor function, normal sensory function, no focal deficits noted. [] Psychologic: Affect normal, judgement normal, mood normal. [] Current Patient Data Vital Signs Vital Signs Date Time Temp Pulse Resp B/P Pulse Ox O2 Delivery O2 Flow Rate FiO2 07/09/16 12:31 98.1 95 18 99 Room Air 98.1 EKG EKG [] Radiology/Procedures Radiology/Procedures [] Course & Med Decision Making Course & Med Decision Making Pertinent Labs and Imaging studies reviewed. (See chart for details) [] Dragon Disclaimer Dragon Disclaimer This electronic medical record was generated, in whole or in part, using a voice recognition dictation system. Departure Departure Impression: Primary Impression: Normal exam Disposition: HOME, SELF-CARE Condition: GOOD Referrals: NO PCP (PCP) Patient Instructions: Genital Herpes Additional Instructions: 1. There is no evidence of a herpetic infection at this time. 2. Review the discharge instructions provided on information for genital herpes. 3. Protect yourself at all times. Even condoms or not 100% effective against herpes. 4. If you do developed symptoms such as blistering skin tear genitals, discharge , painful urination or flulike symptoms, then return to the emergency department for evaluation. SHON BLOOM Jul 09, 2016 13:17
== END 2016-07-09 13:20 | disposition home or self-care (01) ==
LOC: ER 11:56
DX: Z11.3 Encounter for screening for infections with a predominantly sexual mode of transmission (principal)
CPT/HCPCS: 99281

== ENCOUNTER 2019-12-18 15:12 | Emergency (ER) | payer SELFPAY ==
[~2019-12-18] VITALS: Ht 185.4 cm; Wt 122.7 kg
[~2019-12-18 15:12] MED LIST changes: -HYDR-2666 PO; +HYDR-2761 PO
[2019-12-18 15:25] VITALS: BP 137/81
[2019-12-18] MEDS ORDERED: cefTRIAXone IM 250 MG VIAL IM ONE (15:45)
[2019-12-18] MEDS ORDERED: AZITHROMYCIN 250 MG TABLET. PO ONE (15:45)
[2019-12-18] MEDS ORDERED: ONDANSETRON ODT 4 MG TAB.RAPDIS. PO ONE (15:45)
--- NOTE | 2019-12-18 15:49 | PHYS DOC ---
Past Medical History Past Medical History: No Pertinent History Past Surgical History: Cholecystectomy Smoking Status: Current Every Day Smoker Alcohol Use: Occasionally Drug Use: Marijuana Social History Narrative: DAILY MARIJUANA USE General Adult EDM: Chief Complaint: SEXUALLY TRANSMITTED DISEASE HPI: HPI: Patient is a 29 year old male who presents with states he has had yellow, green penile discharge for the last 3 days. Patient states he is also having some burning with urination. Patient denies any no known exposures. Patient denies fever, abdominal pain, nausea, vomiting, diarrhea, chest pain, cough, back pain, blood in his urine, shortness of air, headache, dizziness. Takes no medications daily. No medical history. Denies any pain at this time. Review of Systems: Review of Systems: Constitutional: Denies fever or chills. [] Eyes: Denies change in visual acuity. [] HENT: Denies nasal congestion or sore throat. [] Respiratory: Denies cough or shortness of breath. [] Cardiovascular: Denies chest pain or edema. [] GI: Denies abdominal pain, nausea, vomiting, bloody stools or diarrhea. [] : Denies dysuria. Penile discharge and burning with urination. [] Musculoskeletal: Denies back pain or joint pain. [] Integument: Denies rash. [] Neurologic: Denies headache, focal weakness or sensory changes. [] Endocrine: Denies polyuria or polydipsia. [] Lymphatic: Denies swollen glands. [] Psychiatric: Denies depression or anxiety. [] Heart Score: Risk Factors: Risk Factors: DM, Current or recent (<one month) smoker, HTN, HLP, family history of CAD, obesity. Risk Scores: Score 0 - 3: 2.5% MACE over next 6 weeks - Discharge Home Score 4 - 6: 20.3% MACE over next 6 weeks - Admit for Clinical Observation Score 7 - 10: 72.7% MACE over next 6 weeks - Early Invasive Strategies Current Medications: Current Medications Medications (Trade) Dose Ordered Sig/Nesha Start Time Stop Time Status Last Admin Dose Admin Azithromycin (Zithromax) 1,000 mg 1X ONCE 12/18/19 15:45 12/18/19 15:46 Ceftriaxone Sodium (Rocephin Im) 250 mg 1X ONCE 12/18/19 15:45 12/18/19 15:46 Ondansetron HCl (Zofran Odt) 4 mg 1X ONCE 12/18/19 15:45 12/18/19 15:46 Allergies: Allergies: Allergies Coded Allergies Type Severity Reaction Last Updated Verified No Known Drug Allergies 06/25/16 No Physical Exam: PE: Constitutional: Well developed, well nourished, no acute distress, non-toxic appearance. [] HENT: Normocephalic, atraumatic, bilateral external ears normal, oropharynx moist, no oral exudates, nose normal. [] Eyes: PERRLA, EOMI, conjunctiva normal, no discharge. [] Neck: Normal range of motion, no tenderness, supple, no stridor. [] Cardiovascular:Heart rate regular rhythm, no murmur [] Lungs & Thorax: Bilateral breath sounds clear to auscultation [] Abdomen: Bowel sounds normal, soft, no tenderness, no masses, no pulsatile masses. [] Skin: Warm, dry, no erythema, no rash. [] Back: No tenderness, no CVA tenderness. [] Extremities: No tenderness, no cyanosis, no clubbing, ROM intact, no edema. [] Neurologic: Alert and oriented X 3, normal motor function, normal sensory function, no focal deficits noted. [] Psychologic: Affect normal, judgement normal, mood normal. Normal physical exam [] Current Patient Data: Vital Signs: Vital Signs Date Time Temp Pulse Resp B/P (MAP) Pulse Ox O2 Delivery O2 Flow Rate FiO2 12/18/19 15:25 98.7 100 16 137/81 (99) 95 Room Air 98.7 EKG: EKG: [] Radiology/Procedures: Radiology/Procedures: [] Course & Med Decision Making: Course & Med Decision Making Pertinent Labs and Imaging studies reviewed. (See chart for details) No penile discharge or rash or sores seen. Abdomen soft and nontender. Afebrile. Alert and oriented x4. Ambulatory with a steady gait. Speaks in full clear sentences. Skin pink warm and dry. Patient is given azithromycin and Rocephin in the ED. He is told that he will be called in 48 hours only if his results come back positive. [] Dragon Disclaimer: Dragon Disclaimer: This electronic medical record was generated, in whole or in part, using a voice recognition dictation system. Departure Departure Impression: Primary Impression: Sexually transmissible disease Additional Impression: UTI (urinary tract infection) Qualified Codes: N39.0 - Urinary tract infection, site not specified; R31.9 - Hematuria, unspecified Disposition: 01 HOME, SELF-CARE Condition: STABLE Referrals: NO PCP (PCP) Patient Instructions: Sexually Transmitted Disease Additional Instructions: Follow-up with your primary care provider or urologist if needed. Tell all other sexual partners that you have been treated today for a sexually transmitted disease and they should also be checked. Scripts Sulfamethoxazole/Trimethoprim (BACTRIM DS TABLET) 1 Each Tablet 1 TAB PO BID for 7 Days, #14 TAB 0 Refills Prov: PHIL BAUGH APRN 12/18/19 Justicifation of Admission Dx: Justifications for Admission: Justification of Admission Dx: N/A PHIL BAUGH APRN Dec 18, 2019 15:49
[2019-12-18 15:52] LABS: BILIRUBIN,URINE SMALL (NEG); CLARITY,URINE CLOUDY; COLOR,URINE AMBER; NITRITE,URINE NEGATIVE (NEG); PH,URINE 5.5 (<5.0-8.0); PROTEIN,URINE NEGATIVE (NEG-TRACE)
[2019-12-18 15:58] LABS: BACTERIA,URINE FEW /HPF (0-FEW); WBC,URINE >40 /HPF (0-4)
[2019-12-18] MEDS ORDERED: SULF1TAB24 PO (16:05)
== END 2019-12-18 16:29 | disposition home or self-care (01) ==
LOC: ER 15:12
DX: N39.0 Urinary tract infection, site not specified (principal); R31.9 Hematuria, unspecified; F17.200 Nicotine dependence, unspecified, uncomplicated; F12.90 Cannabis use, unspecified, uncomplicated; Z90.49 Acquired absence of other specified parts of digestive tract
CPT/HCPCS: 81001; 87086; 87491; 87591; 96372; 99283; J0696

== ENCOUNTER 2021-06-24 12:03 | Emergency (ER) | payer SELFPAY ==
[~2021-06-24] VITALS: Ht 185.4 cm; Wt 118.0 kg
[~2021-06-24 12:03] MED LIST changes: +SULF1TAB24 PO
[2021-06-24 12:51] VITALS: BP 132/77
[2021-06-24] MEDS ORDERED: DOXYCYCLINE HYCLATE 100 MG TABLET PO ONE (13:45)
[2021-06-24] MEDS ORDERED: PENICILLIN G BENZATHINE LA 2,400,000 UNIT/4 ML DISP.SYRIN. IM ONE (13:45)
[2021-06-24] MEDS ORDERED: metroNIDAZOLE 500 MG TABLET PO ONE (13:45)
--- NOTE | 2021-06-24 14:39 | PHYS DOC ---
Past Medical History Past Medical History: No Pertinent History Past Surgical History: Cholecystectomy Smoking Status: Current Every Day Smoker Alcohol Use: Occasionally Drug Use: Marijuana General Adult EDM: Chief Complaint: SEXUALLY TRANSMITTED DISEASE HPI: HPI: Patient is a 30 year old male who presents the ED today requesting STD treatment. Patient states he has bumps on his penis and he believes he has syphilis. Patient reports being sexually active and not using protection. Denies any lesions on his hands Review of Systems: Review of Systems: Constitutional: Denies fever or chills. [] GI: Denies abdominal pain, nausea, vomiting, bloody stools or diarrhea. [] : Denies dysuria. [] Male -reports bumps on his penis Musculoskeletal: Denies back pain or joint pain. [] Integument: Denies rash. [] Neurologic: Denies headache, focal weakness or sensory changes. [] Psychiatric: Denies depression or anxiety. [] Heart Score: C/O Chest Pain: N/A Risk Factors: Risk Factors: DM, Current or recent (<one month) smoker, HTN, HLP, family history of CAD, obesity. Risk Scores: Score 0 - 3: 2.5% MACE over next 6 weeks - Discharge Home Score 4 - 6: 20.3% MACE over next 6 weeks - Admit for Clinical Observation Score 7 - 10: 72.7% MACE over next 6 weeks - Early Invasive Strategies Current Medications: Current Medications Medications (Trade) Dose Ordered Sig/Nesha Start Time Stop Time Status Last Admin Dose Admin Doxycycline Hyclate (Vibra-Tab) 100 mg 1X ONCE 06/24/21 13:45 06/24/21 13:49 DC Metronidazole (Flagyl) 2,000 mg 1X ONCE 06/24/21 13:45 06/24/21 13:49 DC Penicillin G Benzathine (Bicillin L-A) 2,400,000 unit 1X ONCE 06/24/21 13:45 06/24/21 13:49 DC Allergies: Allergies: Allergies Coded Allergies Type Severity Reaction Last Updated Verified No Known Drug Allergies 06/25/16 No Physical Exam: PE: Constitutional: Well developed, well nourished, no acute distress, non-toxic appearance. []] Abdomen: Bowel sounds normal, soft, no tenderness, no masses, no pulsatile masses. 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 [] Back: No tenderness, no CVA tenderness. [] Extremities: No tenderness, no cyanosis, no clubbing, ROM intact, no edema. [] Neurologic: Alert and oriented X 3, normal motor function, normal sensory function, no focal deficits noted. [] Psychologic: Affect normal, judgement normal, mood normal. [] Current Patient Data: Vital Signs: Vital Signs Date Time Temp Pulse Resp B/P (MAP) Pulse Ox O2 Delivery O2 Flow Rate FiO2 06/24/21 12:51 97.9 92 18 132/77 (95) 96 Room Air 97.9 EKG: EKG: [] Radiology/Procedures: Radiology/Procedures: [] Course & Med Decision Making: Course & Med Decision Making Pertinent Labs and Imaging studies reviewed. (See chart for details) This a 30-year-old male patient presented to the ED today with complaints of lesions on his penis for couple days. Patient states he has syphilis, no test has been done for syphilis outpatient. Syphilis test was ordered as well as herpes gonorrhea chlamydia and trichomonas. He was treated for all this diseases prophylaxis. Patient treated in the ED and discharged on doxycycline and a Cyclovir. Instructed to follow-up with the health department. STD education also provided Dragon Disclaimer: Dragon Disclaimer: This electronic medical record was generated, in whole or in part, using a voice recognition dictation system. Departure Departure Impression: Primary Impression: Concern about STD in male without diagnosis Disposition: HOME / SELF CARE / HOMELESS Condition: STABLE Referrals: NO PCP (PCP) Follow-up with the health department for further STD concerns Patient Instructions: Sexually Transmitted Disease, [id number] Additional Instructions: You were evaluated in the emergency room for STD concerns. We will call you in the next 3 to 7 days if your test results are positive. If they are not positive you will not hear from us. Take the prescribed medications as ordered. Do not have any intercourse for 14 days. Ensure you partners get treated. Use protection at all times Scripts Acyclovir (ACYCLOVIR) 800 Mg Tablet 1 TAB PO 5XDAY, #50 TAB Prov: MUTUNGA,NABIL M HYDRATOR OPERATOR 06/24/21 Doxycycline Hyclate (DOXYCYCLINE HYCLATE) 100 Mg Tablet 1 TAB PO BID, #28 TAB Prov: MUTUNGA,NABIL M HYDRATOR OPERATOR 06/24/21 NABIL WYATT APRN Jun 24, 2021 14:39
[2021-06-24 15:07] LABS: BILIRUBIN,URINE NEGATIVE (NEG); CLARITY,URINE CLEAR; COLOR,URINE YELLOW; NITRITE,URINE NEGATIVE (NEG); PROTEIN,URINE NEGATIVE (NEG-TRACE); UROBILINOGEN,URINE 0.2 mg/dL (0.2 mg/dL)
[2021-06-24 15:10] LABS: BACTERIA,URINE 0 /HPF (0-FEW); RBC,URINE OCC /HPF (0-2); WBC,URINE OCC /HPF (0-4)
[2021-06-24] MEDS ORDERED: ACYC800T88 PO (16:23)
[2021-06-24] MEDS ORDERED: DOXY100T PO (16:23)
== END 2021-06-24 16:40 | disposition home or self-care (01) ==
LOC: ER 12:03
DX: Z20.2 Contact with and (suspected) exposure to infections with a predominantly sexual mode of transmission (principal); F17.200 Nicotine dependence, unspecified, uncomplicated; Z90.49 Acquired absence of other specified parts of digestive tract
CPT/HCPCS: 81001; 86592; 87491; 87529; 87591; 96372; 99283; J0561